=== PATIENT | female | born 1955 | race Caucasian/White ===

== ENCOUNTER 2023-10-10 13:14 | Emergency (ER) | payer BC, MEDICARE ==
[2023-10-10 14:16] LABS: BASOPHILS ABSOLUTE AUTO 0.1 x10-3/uL (0.0-0.1); BASOPHILS PERCENT AUTO 1.1 % (0.2-1.5); EOSINOPHILS ABSOLUTE AUTO 0.1 x10-3/uL (0.0-0.8); EOSINOPHILS PERCENT AUTO 1.6 % (0.6-8.1); HEMATOCRIT 37.6 % (34.2-48.2); HEMOGLOBIN 12.8 g/dL (11.4-15.5); LYMPHOCYTES ABSOLUTE AUTO 1.9 x10-3/uL (1.0-4.4); LYMPHOCYTES PERCENT AUTO 25.2 % (18.4-52.1); MEAN CORPUSCULAR HEMOGLOBIN 28.4 pg (23.9-33.9); MEAN CORPUSCULAR VOLUME 83.5 fL (76.7-100.5); MEAN PLATELET VOLUME 7.9 fL (7.1-12.4); MONOCYTES ABSOLUTE AUTO 0.4 x10-3/uL (0.3-1.0); MONOCYTES PERCENT AUTO 5.4 % (4.4-15.7); NEUTROPHILS ABSOLUTE AUTO 5.1 x10-3/uL (1.5-6.3); NEUTROPHILS PERCENT AUTO 66.7 % (30.8-76.2); PLATELET COUNT,PLT 271 x10(3)uL (151-488); RED BLOOD CELL COUNT 4.51 x10(6)uL (3.60-5.20); RED CELL DISTRIBUTION WIDTH 13.6 % (12.3-16.5); WHITE BLOOD CELL COUNT,WBC 7.6 x10-3/uL (3.0-10.3)
[2023-10-10 14:22] LABS: BLOOD UREA NITROGEN,BUN 19 mg/dL (7-18); BUN/CREATININE RATIO 27.1 (9-20); CALCIUM 9.1 mg/dL (8.6-10.2); CARBON DIOXIDE,CO2 31 mmol/L (21-32); CHLORIDE,CL 95 mmol/L (100-110); CREATININE 0.7 mg/dL (0.55-1.02); EST CRCL DRUG DOSING (CG) 61.68 mL/min; ESTIMATED GFR 95 mL/min (>60); GLUCOSE RANDOM 101 mg/dL (80-116); POTASSIUM,K 3.3 mmol/L (3.5-5.3); SODIUM,NA 135 mmol/L (135-145)
[2023-10-10 14:28] LABS: A/G RATIO 1.2; ALANINE AMINOTRANSFERASE,ALT 23 U/L (12-36); ALBUMIN 3.6 g/dL (3.2-4.6); ALKALINE PHOSPHATASE 61 IU/L (56-112); ASPARTATE AMNIOTRANSFERASE,AST 14 IU/L (5-25); BILIRUBIN TOTAL 0.4 mg/dL (0.1-1.3); PROTEIN TOTAL,TP 6.5 g/dL (6.0-8.0)
[2023-10-10 15:12] VITALS: BP 113/68; PULSE 75
== END 2023-10-10 15:10 | disposition home or self-care (01) ==
LOC: FB.ED 13:14
DX: E87.6 Hypokalemia (principal); E86.0 Dehydration; M79.7 Fibromyalgia; R79.89 Other specified abnormal findings of blood chemistry; I10 Essential (primary) hypertension; Z79.899 Other long term (current) drug therapy; Z91.040 Latex allergy status; Z88.8 Allergy status to other drugs, medicaments and biological substances; Z91.048 Other nonmedicinal substance allergy status
CPT/HCPCS: 36415; 70450; 80053; 85025; 86140; 99284